=== PATIENT | male | born 1990 | race Caucasian/White ===

== ENCOUNTER → 2016-04-25 | Outpatient (CLI) | payer OTHER ==
[~2016-04-25] MED LIST: ALDACTONE100 MG PO; AUGMENTIN PO; DAILY VALUE1 EACH PO; DEPAKOTE ER250 MG PO; DEPAKOTE250 MG PO; FOLIC ACID1 MG PO; FUROSEMIDE40 MG PO; KCL PO; KEPPRA500 MG PO; KLOR-CON PO; LACTULOSE10 G/15 M1 PO; LACTULOSE10 G/15 M3 PO; LORTAB 5/500 TA1 TA1 PO; MAGNESIUM400 M1 PO; MULTI VITAMIN1 EACH PO; MULTIVITAMINS1 EAC2 PO; NEURONTIN PO; PREDNISONE10 MG/DOSE PO; SPIRONOLACTONE100 MG PO; THIAMINE HCL100 M1 PO; VITAMIN B-1100 M1 PO; XIFAXAN550 MG PO; ZINC GLUCONATE100 MG PO; ZINC PICOLINATE PO
--- NOTE | ~2016-04-25 | XA170 ---
[facility] A Service of [facility] RADIOLOGY TEXT RESULTS PATIENT: CAROLINA MAK LOCATION: [facility] : 88 UNIT #: [id number] AGE: [address]: Alfa Avila MD SEX: M ORDER DR: [id number] [place] [id number] [facility]. [place], [place] [address] [id number] O MR#: [id number] Acc #: [id number] NAME: CAROLINA MAK : 1990 SEX: M STUDY DATE/TIME: 04/25/2016 14:19 UNIT: [facility] ROOM: STUDY DESCRIPTION: XA Paracentesis W Image Attending Physician: Alfa Avila M.D. Referring Physician: Alfa Avila M.D. Ordering Physician: Alfa Avila M.D. Primary Care Physician: Raghav Kaiser Aprn MEDICAL IMAGING REPORT This report is preliminary unless electronic signature is present EXAM Ultrasound-guided paracentesis INDICATIONS 25-year-old male with recurrent ascites. Risks, benefits and alternatives of the procedure discussed with the patient and informed consent was obtained. In the procedure room, time-out was performed confirming correct patient and procedure. All elements of maximum sterile-barrier technique utilized, according to guidelines appropriate for the procedure. TECHNIQUE/FINDINGS Ultrasound of the right lower quadrant was performed which demonstrated a large amount of ascites. The overlying skin was prepped and draped in the usual sterile fashion and 1% lidocaine was utilized to anesthetize the skin and underlying subcutaneous tissues. Next, under ultrasound guidance, a 5-Turkish Yueh catheter was inserted into the peritoneal space of the right lower quadrant and 4,8000 mL of clear yellow fluid was removed and discarded. Needle was removed and a sterile dressing was applied. No immediate complications. IMPRESSION Technically successful ultrasound-guided paracentesis. Dictated by... Bhavin Lee M.D. THIS IS AN ELECTRONICALLY VERIFIED REPORT Bhavin Lee M.D. at 04/26/2016 4:43 PM ARS/psc TD: 04/25/2016 20:09 JOB #: [id number] [facility] A Service of [facility] & [facility] RADIOLOGY TEXT RESULTS PATIENT: CAROLINA MAK LOCATION: [facility] : [birth year] UNIT #: [id number] AGE: [address]: Alfa Avila MD SEX: M ORDER DR: MEDICAL IMAGING REPORT COPY
[2016-04-25 14:18] LABS: HEMATOCRIT 39.6 % (38.0-50.0); HEMOGLOBIN 13.1 gm/dL (13.0-16.0); MEAN CELL VOLUME 88.5 FL (83-96); MEAN CORPUSCULAR HEMOGLOBIN 29.3 PG (28-34); MEAN CORPUSCULAR HGB CONC 33.2 g/dL (30-36); MEAN PLATELET VOLUME 7.2 FL (6.5-11.5); RED BLOOD COUNT 4.47 X10e (3.90-5.60); RED CELL DISTRIBUTION WIDTH 14.6 % (11.0-15.5); WHITE BLOOD COUNT 7.5 X10e3 (4.0-10.5)
[2016-04-25 14:35] LABS: INR 1.3; PARTIAL THROMBOPLASTIN TIME 29.1 SECONDS (23.5-31.3); PROTHROMBIN TIME (PATIENT) 13.3 SECONDS (9.6-11.5)
== END | disposition home or self-care (01) ==
LOC: CIVR 13:37
PROVIDERS: Internal Medicine
PROC: 0W9G3ZX Drainage of Peritoneal Cavity, Percutaneous Approach, Diagnostic (ICD-10-PCS; principal; 2016-04-25)
DX: K74.60 Unspecified cirrhosis of liver (principal); R18.8 Other ascites
CPT/HCPCS: 36415; 85027; 85610; 85730

== ENCOUNTER → 2016-06-10 | Outpatient (CLI) | payer OTHER ==
--- NOTE | ~2016-06-10 | XA170 ---
[facility] A Service of [facility] RADIOLOGY TEXT RESULTS PATIENT: CAROLINA MAK LOCATION: [facility] : 88 UNIT #: [id number] AGE: [address]: Alfa Avila MD SEX: M ORDER DR: [id number] [id number] [facility]. [place], [place] [address] [id number] O MR#: [id number] Acc #: [id number] NAME: CAROLINA MAK : 1990 SEX: M STUDY DATE/TIME: 06/10/2016 13:24 UNIT: [facility] ROOM: STUDY DESCRIPTION: XA Paracentesis W Image Attending Physician: Alfa Avila M.D. Ordering Physician: Alfa Avila M.D. Primary Care Physician: Raghav Kaiser Aprn MEDICAL IMAGING REPORT This report is preliminary unless electronic signature is present EXAM Ultrasound-guided paracentesis 06/10/2016 INDICATIONS 26-year-old male with ascites. PROCEDURE The risks, benefits and alternatives of the procedure were discussed with the patient and informed consent was obtained. In the procedure room a time-out was performed confirming correct patient and procedure. All elements of maximum sterile-barrier technique utilized according to guidelines appropriate for the procedure. TECHNIQUE/FINDINGS Ultrasound of the abdomen was performed demonstrating a large amount of ascites. The overlying skin was prepped and draped in the usual sterile fashion. 1% lidocaine was administered for local anesthesia. Next under ultrasound guidance 5-German Yueh catheter inserted into the peritoneal space of the right lower quadrant and 8000 mL of fluid was removed and discarded. Needle was removed and a sterile dressing was applied. No immediate complications. IMPRESSION Technically successful ultrasound-guided paracentesis. Dictated by... Bhavin Lee M.D. THIS IS AN ELECTRONICALLY VERIFIED REPORT Bhavin Lee M.D. at 06/13/2016 12:30 PM GEN/haleigh [facility] A Service of [facility] RADIOLOGY TEXT RESULTS PATIENT: CAROLINA MAK LOCATION: [facility] : 88 UNIT #: [id number] AGE: [address]: Alfa Avila MD SEX: M ORDER DR: TD: 06/10/2016 16:58 JOB #: [id number] MEDICAL IMAGING REPORT Page 1 of 1 COPY
[2016-06-10 12:26] LABS: HEMATOCRIT 40.4 % (38.0-50.0); HEMOGLOBIN 13.6 gm/dL (13.0-16.0); MEAN CELL VOLUME 87.6 FL (83-96); MEAN CORPUSCULAR HEMOGLOBIN 29.5 PG (28-34); MEAN CORPUSCULAR HGB CONC 33.6 g/dL (30-36); MEAN PLATELET VOLUME 6.5 FL (6.5-11.5); RED BLOOD COUNT 4.61 X10e (3.90-5.60); RED CELL DISTRIBUTION WIDTH 14.9 % (11.0-15.5); WHITE BLOOD COUNT 7.2 X10e3 (4.0-10.5)
[2016-06-10 13:21] LABS: INR 1.2; PROTHROMBIN TIME (PATIENT) 12.5 SECONDS (9.6-11.5)
== END | disposition home or self-care (01) ==
LOC: CIVR 12:02
PROVIDERS: Internal Medicine
PROC: 0W9G3ZX Drainage of Peritoneal Cavity, Percutaneous Approach, Diagnostic (ICD-10-PCS; principal; 2016-06-10)
DX: K74.60 Unspecified cirrhosis of liver (principal); R18.8 Other ascites
CPT/HCPCS: 36415; 85027; 85610; 85730

== ENCOUNTER → 2016-06-24 | Day surgery (SDC) | payer OTHER ==
--- NOTE | ~2016-06-24 | OR ---
Unit #: [id number] #: [id number] Patient: CAROLINA MAK [id number] [address] [address] [id number] O MR#: [id number] NAME: CAROLINA MAK ROOM: Date of Procedure: 06/24/2016 Admission Date: 06/24/2016 Surgeon: Alfa Avila M.D. : 1990 Attending Physician: Alfa Avila M.D. Primary Care Physician: Raghav Kaiser Aprn OPERATIVE REPORT PROCEDURE PERFORMED Esophagogastroduodenoscopy with biopsy. INDICATIONS FOR PROCEDURE The patient with alcoholic cirrhosis. MEDICATIONS Monitored anesthesia. FINDINGS 1. No varices. 2. Diffuse gastropathy, biopsies taken. 3. Normal duodenum and distal duodenum. PLAN Continue with current treatment. Repeat upper endoscopy in 1 to 2 years. DESCRIPTION OF PROCEDURE The patient was explained of the procedure, risks, and benefits along with risks and benefits of anesthesia. He was brought to the endoscopy room. Propofol anesthesia was given. Bite block was placed. The scope was passed down the mouth into the esophagus, stomach, duodenum, and distal duodenum. Findings as described. Biopsies taken. Gently, I pulled the scope out of the patient's mouth. He tolerated the procedure well. Dictated by... Alonzo Arvizu/efrain TD: 06/24/2016 23:00 JOB #: [id number] Unit #: [id number] #: [id number] Patient: CAROLINA MAK OPERATIVE REPORT Page 1 of 1 X Alfa Avila MD X PROCEDURE OPERATIVE NOTE
== END | disposition home or self-care (01) ==
LOC: COPS 11:28
DX: K70.30 Alcoholic cirrhosis of liver without ascites (principal); K31.9 Disease of stomach and duodenum, unspecified; K29.50 Unspecified chronic gastritis without bleeding; F17.200 Nicotine dependence, unspecified, uncomplicated
CPT/HCPCS: 88305; 88312

== ENCOUNTER → 2016-06-24 | Outpatient (CLI) | payer OTHER ==
--- NOTE | ~2016-06-24 | US6 ---
[facility] A Service of [facility] RADIOLOGY TEXT RESULTS PATIENT: CAROLINA MAK LOCATION: [facility] : [birth year] UNIT #: [id number] AGE: [address]: Alfa Avila MD SEX: M ORDER DR: [id number] [place], [place] [address] [id number] O MR#: [id number] Acc #: [id number] NAME: CAROLINA MAK : 1990 SEX: M STUDY DATE/TIME: 06/24/2016 10:52 UNIT: [facility] ROOM: STUDY DESCRIPTION: US Abdominal Limited Attending Physician: Alfa Avila M.D. Referring Physician: Alfa Avila M.D. Ordering Physician: Alfa Avila M.D. Primary Care Physician: Raghav Kaiser Aprn MEDICAL IMAGING REPORT This report is preliminary unless electronic signature is present EXAM Right upper quadrant abdominal ultrasound. INDICATIONS Generalized abdominal pain for the past 2 weeks. Cirrhosis. Evaluate for hepatocellular carcinoma. PROCEDURE Katz-scale and Doppler imaging right upper quadrant of the abdomen. COMPARISON STUDIES None. FINDINGS Visualized portions of pancreas unremarkable. There is a large volume of ascites throughout the abdomen. Right pleural effusion. No appreciable liver mass. Approximately 5 mm nodule in the gallbladder without shadowing may either be a small polyp. There is gallbladder wall thickening. Right kidney measures 10.3 cm. No hydronephrosis. Common duct measures 4-5 mm. IMPRESSION Coarsened hepatic echotexture in keeping with cirrhosis. There is a large volume of ascites in the abdomen and pelvis, as well as a right effusion. Probable 5 mm gallbladder polyp. Gallbladder wall thickening is favored to be related to underlying liver disease. Correlate with any symptoms. No shadowing stones are seen in the gallbladder. Dictated by... [facility] A Service of [facility] RADIOLOGY TEXT RESULTS PATIENT: CAROLINA MAK LOCATION: [facility] : 88 UNIT #: [id number] AGE: [address]: Alfa Avila MD SEX: M ORDER DR: Rizwan Garcia M.D. THIS IS AN ELECTRONICALLY VERIFIED REPORT Rizwan Garcia M.D. at 06/28/2016 7:22 AM MATHIEU/yovany TD: 06/24/2016 16:28 JOB #: [id number] MEDICAL IMAGING REPORT Page 1 of 1 COPY
[2016-06-24 10:37] LABS: HEMATOCRIT 39.9 % (38.0-50.0); HEMOGLOBIN 13.1 gm/dL (13.0-16.0); MEAN CELL VOLUME 87.5 FL (83-96); MEAN CORPUSCULAR HEMOGLOBIN 28.7 PG (28-34); MEAN CORPUSCULAR HGB CONC 32.8 g/dL (30-36); RED BLOOD COUNT 4.56 X10e (3.90-5.60); RED CELL DISTRIBUTION WIDTH 14.9 % (11.0-15.5); WHITE BLOOD COUNT 6.5 X10e3 (4.0-10.5)
[2016-06-24 11:09] LABS: ALBUMIN SERUM 3.3 g/dL (3.5-5.0); BILIRUBIN,TOTAL 0.8 mg/dL (0.2-2.0); CALCIUM SERUM 8.8 mg/dL (8.4-10.2); CREATININE SERUM 0.5 mg/dL (0.6-1.4); GLOM FILT RATE Estimated 147.5 mL/min (>60); POTASSIUM 3.6 mmol/L (3.5-5.1); PROTEIN TOTAL SERUM 6.7 g/dL (6.0-8.3)
== END | disposition home or self-care (01) ==
LOC: CGUS 09:45
PROVIDERS: Internal Medicine
DX: K74.60 Unspecified cirrhosis of liver (principal); R18.8 Other ascites; J90 Pleural effusion, not elsewhere classified
CPT/HCPCS: 36415; 76705; 80053; 82105; 85027

== ENCOUNTER → 2016-06-28 | Outpatient (CLI) | payer OTHER ==
--- NOTE | ~2016-06-28 | XA170 ---
[facility] A Service of [facility] & [facility] RADIOLOGY TEXT RESULTS PATIENT: CAROLINA UMANZOR LOCATION: [facility] : 88 UNIT #: [id number] AGE: [address]: Alfa Avila MD SEX: M ORDER DR: [id number] [facility] [address] [place], [place] [address] [id number] O MR#: [id number] Acc #: [id number] NAME: CAROLINA UMANZOR : 1990 SEX: M STUDY DATE/TIME: 06/28/2016 13:54 UNIT: [facility] ROOM: STUDY DESCRIPTION: XA Paracentesis W Image Attending Physician: Alfa Avila M.D. Referring Physician: Alfa Avila M.D. Ordering Physician: Alfa Avila M.D. Primary Care Physician: Raghav Kaiser Aprn MEDICAL IMAGING REPORT This report is preliminary unless electronic signature is present EXAM Ultrasound-guided paracentesis. HISTORY Recurrent refractory ascites, cirrhosis. PROCEDURE Procedure, attendant risks, and options were discussed with Mr. Umanzor. He understands and wished to proceed. Ultrasound examination was performed and a site in the right flank was chosen. Skin was marked, prepped, and draped. Utilizing maximal sterile barrier technique appropriate for the procedure guidelines and under local anesthesia, a 5-Anguillan catheter was inserted and 9.3 L of fluid was removed and discarded. This was very well tolerated. Single ultrasound film was submitted. CONCLUSION Successful ultrasound-guided paracentesis with removal of 9.3 L of fluid. Dictated by... Mando Kelly M.D. THIS IS AN ELECTRONICALLY VERIFIED REPORT Mando Kelly M.D. at 06/28/2016 5:01 PM CORINNE/marbella TD: 06/28/2016 16:55 JOB #: [id number] MEDICAL IMAGING REPORT Page 1 of 1 COPY
== END | disposition home or self-care (01) ==
LOC: CIVR 13:32
PROC: 0W9G3ZX Drainage of Peritoneal Cavity, Percutaneous Approach, Diagnostic (ICD-10-PCS; principal; 2016-06-28)
DX: K74.60 Unspecified cirrhosis of liver (principal); R18.8 Other ascites

== ENCOUNTER → 2016-08-01 | Outpatient (CLI) | payer OTHER ==
--- NOTE | ~2016-08-01 | XA170 ---
[facility] A Service of [facility] & [facility] RADIOLOGY TEXT RESULTS PATIENT: CAROLINA MAK LOCATION: [facility] : 88 UNIT #: [id number] AGE: [address]: Alfa Avila MD SEX: M ORDER DR: [id number] [facility]. [place], [place] [address] [id number] O MR#: [id number] Acc #: [id number] NAME: CAROLINA MAK : 1990 SEX: M STUDY DATE/TIME: 08/01/2016 14:11 UNIT: [facility] ROOM: STUDY DESCRIPTION: XA Paracentesis W Image Attending Physician: Alfa Avila M.D. Referring Physician: Alfa Avila M.D. Ordering Physician: Alfa Avila M.D. Primary Care Physician: Raghav Kaiser Aprn MEDICAL IMAGING REPORT This report is preliminary unless electronic signature is present EXAM Ultrasound-guided paracentesis INDICATIONS Recurrent ascites. Risks, benefits and alternatives of the procedure were discussed with the patient, informed consent was obtained. In the procedure room, a time-out was performed confirming correct patient and procedure. All elements of maximum sterile-barrier technique utilized according to guidelines appropriate for the procedure. TECHNIQUE/FINDINGS Ultrasound of the right lower quadrant was performed. This demonstrated a large amount of ascites. The overlying skin was prepped and draped in the usual sterile fashion and 1% lidocaine utilized to anesthetize the skin and underlying subcutaneous tissues. Next, under ultrasound guidance, a 5-Moldovan Yueh catheter was inserted into the peritoneal space of the right lower quadrant and 8,400 mL of clear fluid was removed. Needle was removed and a sterile dressing was applied. No immediate complications. IMPRESSION Technically successful ultrasound-guided paracentesis. Dictated by... Bhavin Lee M.D. THIS IS AN ELECTRONICALLY VERIFIED REPORT Bhavin Lee M.D. at 08/02/2016 10:06 AM GEN/danni TD: 08/01/2016 22:51 [facility] A Service of [facility] & [facility] RADIOLOGY TEXT RESULTS PATIENT: CAROLINA MAK LOCATION: [facility] : [birth year] UNIT #: [id number] AGE: [address]: Alfa Avila MD SEX: M ORDER DR: JOB #: [id number] MEDICAL IMAGING REPORT Page 1 of 1 COPY
[2016-08-01 13:37] LABS: HEMATOCRIT 40.8 % (38.0-50.0); HEMOGLOBIN 13.4 gm/dL (13.0-16.0); MEAN CELL VOLUME 85.4 FL (83-96); MEAN CORPUSCULAR HEMOGLOBIN 28.1 PG (28-34); MEAN CORPUSCULAR HGB CONC 32.8 g/dL (30-36); MEAN PLATELET VOLUME 7.3 FL (6.5-11.5); RED BLOOD COUNT 4.78 X10e (3.90-5.60); RED CELL DISTRIBUTION WIDTH 14.5 % (11.0-15.5); WHITE BLOOD COUNT 7.7 X10e3 (4.0-10.5)
[2016-08-01 14:03] LABS: INR 1.2; PARTIAL THROMBOPLASTIN TIME 29.1 SECONDS (23.5-31.3); PROTHROMBIN TIME (PATIENT) 12.8 SECONDS (10.0-11.7)
== END | disposition home or self-care (01) ==
LOC: CIVR 13:09
PROVIDERS: Internal Medicine
DX: K74.60 Unspecified cirrhosis of liver (principal); R18.8 Other ascites
CPT/HCPCS: 36415; 85027; 85610; 85730

== ENCOUNTER → 2016-09-07 | Outpatient (CLI) | payer OTHER ==
--- NOTE | ~2016-09-07 | XA170 ---
[facility] A Service of [facility] & [facility] RADIOLOGY TEXT RESULTS PATIENT: CAROLINA MAK LOCATION: [facility] : 88 UNIT #: [id number] AGE: [address]: Alfa Avila MD SEX: M ORDER DR: [id number] [facility] [address] [facility]. [place], [place] [address] [id number] O MR#: [id number] Acc #: [id number] NAME: CAROLINA MAK : 1990 SEX: M STUDY DATE/TIME: 09/07/2016 13:46 UNIT: [facility] ROOM: STUDY DESCRIPTION: XA Paracentesis W Image Attending Physician: Alfa Avila M.D. Referring Physician: Alfa Avila M.D. Ordering Physician: Alfa Avila M.D. Primary Care Physician: Raghav Kaiser Aprn MEDICAL IMAGING REPORT This report is preliminary unless electronic signature is present EXAM Ultrasound-guided paracentesis HISTORY Cirrhosis with ascites. Abdominal distension. TECHNIQUE The procedure was explained to the patient including risks, benefits and complications. Informed consent was obtained and a formal time-out procedure was utilized. Sterile technique was utilized with ChloraPrep skin prep and a drape. Using sterile technique and following local anesthesia with 1% Xylocaine a sheath needle was placed into the largest pocket of fluid in the right lower quadrant. A total of 7.8 mL of fluid was withdrawn and discarded. The patient tolerated the procedure well. IMPRESSION Successful ultrasound guided paracentesis with 7.8 L of fluid obtained. Dictated by... Lv Baugh M.D. THIS IS AN ELECTRONICALLY VERIFIED REPORT Lv Baugh M.D. at 09/08/2016 3:41 PM Julio C TD: 09/07/2016 18:09 JOB #: [id number] MEDICAL IMAGING REPORT Page 1 of 1 COPY
[2016-09-07 13:30] LABS: HEMATOCRIT 41.8 % (38.0-50.0); MEAN CELL VOLUME 83.9 FL (83-96); MEAN CORPUSCULAR HEMOGLOBIN 28.2 PG (28-34); MEAN CORPUSCULAR HGB CONC 33.6 g/dL (30-36); MEAN PLATELET VOLUME 6.9 FL (6.5-11.5); RED BLOOD COUNT 4.97 X10e (3.90-5.60); RED CELL DISTRIBUTION WIDTH 15.6 % (11.0-15.5); WHITE BLOOD COUNT 7.1 X10e3 (4.0-10.5)
[2016-09-07 13:42] LABS: INR 1.2; PARTIAL THROMBOPLASTIN TIME 29.6 SECONDS (23.5-31.3); PROTHROMBIN TIME (PATIENT) 13.2 SECONDS (10.0-11.7)
== END | disposition home or self-care (01) ==
LOC: CIVR 13:11
PROVIDERS: Internal Medicine
DX: K74.60 Unspecified cirrhosis of liver (principal); R18.8 Other ascites
CPT/HCPCS: 36415; 85027; 85610; 85730

== ENCOUNTER → 2016-10-14 | Outpatient (CLI) | payer OTHER ==
--- NOTE | ~2016-10-14 | XA170 ---
[facility] A Service of [facility] & [facility] RADIOLOGY TEXT RESULTS PATIENT: CAROLINA MAK LOCATION: [facility] : 88 UNIT #: [id number] AGE: [address]: Alfa Avila MD SEX: M ORDER DR: [id number] [facility] [address] [facility]. [place], [place] [address] [id number] O MR#: [id number] Acc #: [id number] NAME: CAROLINA MAK : 1990 SEX: M STUDY DATE/TIME: 10/14/2016 14:09 UNIT: [facility] ROOM: STUDY DESCRIPTION: XA Paracentesis W Image Attending Physician: Alfa Avila M.D. Ordering Physician: Alfa Avila M.D. Primary Care Physician: Raghav Kaiser Aprn MEDICAL IMAGING REPORT This report is preliminary unless electronic signature is present STUDY Ultrasound-guided paracentesis HISTORY Recurrent ascites. PROCEDURE Informed consent was obtained from the patient. Skin site was selected with ultrasound guidance and marked, sterilely prepped and draped and locally anesthetized. A [employer] needle catheter was used for paracentesis. After local anesthesia, a total of 5.4 L of fluid removed. There were no complications and the patient tolerated the procedure well. IMPRESSION Successful right lower quadrant ultrasound guided paracentesis with removal of 5.4 L of fluid without complication. Dictated by... Christian Hernandez M.D. THIS IS AN ELECTRONICALLY VERIFIED REPORT Christian Hernandez M.D. at 10/27/2016 2:13 PM KIAN/yovany TD: 10/15/2016 00:15 JOB #: [id number] MEDICAL IMAGING REPORT Page 1 of 1 COPY
[2016-10-14 13:46] LABS: HEMATOCRIT 40.7 % (38.0-50.0); HEMOGLOBIN 13.7 gm/dL (13.0-16.0); MEAN CELL VOLUME 84.1 FL (83-96); MEAN CORPUSCULAR HEMOGLOBIN 28.4 PG (28-34); MEAN CORPUSCULAR HGB CONC 33.8 g/dL (30-36); MEAN PLATELET VOLUME 6.9 FL (6.5-11.5); RED BLOOD COUNT 4.84 X10e (3.90-5.60); RED CELL DISTRIBUTION WIDTH 16.2 % (11.0-15.5); WHITE BLOOD COUNT 7.3 X10e3 (4.0-10.5)
[2016-10-14 14:05] LABS: INR 1.2; PARTIAL THROMBOPLASTIN TIME 28.7 SECONDS (23.5-31.3); PROTHROMBIN TIME (PATIENT) 12.7 SECONDS (10.0-11.7)
[2016-10-14 14:10] LABS: ALBUMIN SERUM 3.9 g/dL (3.5-5.0); BILIRUBIN,TOTAL 1.2 mg/dL (0.2-2.0); BUN/CREATININE RATIO 15.71; CALCIUM SERUM 9.4 mg/dL (8.4-10.2); CREATININE SERUM 0.7 mg/dL (0.6-1.4); GLOM FILT RATE Estimated 128.5 mL/min (>60); POTASSIUM 3.7 mmol/L (3.5-5.1); PROTEIN TOTAL SERUM 7.6 g/dL (6.0-8.3)
== END | disposition home or self-care (01) ==
LOC: CIVR 13:09
PROVIDERS: Internal Medicine
PROC: 0W9G3ZX Drainage of Peritoneal Cavity, Percutaneous Approach, Diagnostic (ICD-10-PCS; principal; 2016-10-14)
DX: K74.60 Unspecified cirrhosis of liver (principal); R18.8 Other ascites
CPT/HCPCS: 36415; 80053; 85027; 85610; 85730